=== PATIENT | male | born 1975 | race Caucasian/White ===

== ENCOUNTER → 2024-09-21 | Outpatient (CLI) | payer OTHER, SELFPAY ==
[2024-09-21 11:01] LABS: Hematocrit 44.3 % (40-54); Hemoglobin 15.1 g/dL (13.0-16.5); Immature Granulocytes Count 0.020 X10^3/uL (0.0-0.0); Mean Corp Hgb Conc 34.1 g/dL (32-36); Mean Corpuscular Volume 95.1 fL (80-94); Mean Platelet Vol. 11.3 fl (6.2-12.0); NRBC Flagged by Analyzer 0 % (0-5); Platelet Count 173 K/mm3 (150-450); RBC Distribution Width CV 12.1 % (11.6-14.6); RBC Distribution Width SD 42.2 fl (35.1-43.9); Red Blood Count 4.66 M/mm3 (4.6-6.2); White Blood Count 4.5 K/mm3 (4.4-11.0)
[2024-09-21 13:29] LABS: AST(SGOT) 31 U/L (<=37); Alanine Aminotransfer ALT/SGPT 57 U/L (<=46); Albumin, Serum 4.5 g/dL (3.5-5.0); Alkaline Phosphatase 35 U/L (40-129); Anion Gap 11 (5-15); BUN 14 mg/dL (4-19); BUN/Creat Ratio 13.7 RATIO (10-20); Calcium,Total 9.4 mg/dL (7.6-11.0); Carbon Dioxide 23.9 mmol/L (21.0-32.0); Chloride 104 mmol/L (98-108); Cholesterol 209 mg/dL (<=200); Globulin 2.8 g/dL (2.2-4.2); Glucose 98 mg/dL (70-99); Low Density Lipoprotein Calc. 127 mg/dL; Potassium 4.2 mmol/L (3.3-5.1); Triglycerides 175 mg/dL; Very Low Density Lipoprotein 35 mg/dL (5-40); cholesterol:hdl ratio screen 4.40
[2024-09-21 13:32] LABS: PSA,Total - Annual Screen 0.60 ng/mL (0.02-4.00)
--- OUTSIDE RECORDS SUMMARY | 2024-09-21 20:27 | XMS RPT_ITS | CCD ---
Author Organization [facility] Care Team Providers Care Hand Crown Pouncer Name Role Phone KEVEN MARTINES-LARISA, DANIEL Nieto Primary Care Physi shaniqua KEVEN MARTINES-DANIEL PERES Primary Care Un available SANA BRUCE Attending UnavailJuan JAMES, Avtar Root Attending Unavailable Danny JAMES, Avtar Root Attending Unavailable Medications Current Medications Medication Drug Class(es) Dates Sig (Normalized) Sig (Original) sertraline 100 mg oral tablet (1 source) Serotonin Reuptake Inhibitor Start: 02-12-2022 End: 02-07-2023 Zoloft 100 mg oral tablet Dose : 50 mg = 0.5 tab(s), Oral, Daily, # 45 tab(s), 3 Refill(s), Pharmacy: [facility], [facility] adult exam Depressive disorder, 170.2, cm, 02/12/22 9:11:00 EST, Height Start Date: 02/12/22 Stop Date: 02/07/23 Status: Ordered Problems Problem Classification Problem Date Documented Da te Episodic/Chronic Mood disorders (1 source) Depressive disorder 02-12-2022 Chronic Results Test Name Value Interpretation Reference Range Facility Urgent Care Visit Reporton 0 09-28-2023 Urgent Care Visit Report [facility] [address], [address] [place] [address] OFFICE VISIT Date of Service: 09/28/23 MR#: [id number] Acct: [id number] Name: NELIA LACKEY Abhijit Root Rep #: [id number] : 1975 Provider: JACOB Sylvester Age/Sex: 48/M Location: [facility] [place] Status: Signed Intake Vital Signs 03/09/23 14:09 09/28/23 11:00 Height 5 ft 8 in 5 ft 8 in Weight: 185 lb 185 lb BMI 28.1 28.1 BP 137/85 H 126/86 H Blood Pressure Location Lt brachial Lt brachial Position Sitting Sitting Respiration 16 16 Pulse 106 H 79 Pulse Source Monitor Monitor Temp 98.4 F 98.2 F Temp Source Temporal Temporal Pulse Oximetry (%) 94 98 Oxygen Delivery Method room air room air Intake Visit Reasons: SINUS COMPLAINT/CONGESTIO N/COUGH Chief Complaint: sinus com pliants congestion cough Percolator Operator Required: No Accompanied by: Self Is patient in pain?: No Allergies No Known Allergies Allergy (Unverified 09/28/23 11:01) Medications ???Medication ???Instructions ???Recorded ???Confirmed ???Type benzonatate 200 mg capsule 200 mg PO TID PRN cough #20 caps 09/28/23 09/28/23 Rx methylprednisolone 4 mg tablets in See Rx Instructions PO PER PKG DIR 09/28/23 09/28/23 Rx a dose pack (Medrol (Eliceo)) #21 tabs PFSH Medical History Acute pharyngitis, unspecified COVID-19 HPI HPI Chief Complaint: sinus com pliants congestion cough Details: NELIA LACKEY, is a 48 M who presents to the office today for initial evaluation in the [facility] for approximately 3 day history of persistent chills, cough, congestion. Patient notes no complaints of chest pain or shortness of breath or dyspnea on exertion. Several close contacts, including spouse, recently dx???d w/ similar URI complaints. Nonsmoker. Declining all POC screening upon offering. No [id number] taken to assist. No other associated symptoms and no other alleviating/aggrava ting factors. ROS Const Constitutional: No other (As above) Exam Const General: cooperative, healthy appearing and no acute distress Orientation: alert, awake and oriented x3 HENMT Head: normal to inspection Ears: hearing grossly normal bilaterally, external ears normal, TM's normal bilaterally and EAC's normal Nose: external nose normal, nares normal, septum normal and clear nasal discharge Face and sinus: normal facial exam, sinuses nontender and face symmetric Mouth: oral mucosae normal, lip normal, tongue normal and oropharynx normal Throat: posterior oropharynx normal, tonsils normal, uvula midline and no postnasal drainage Eyes General: appearance normal, both eyes and all related structures Neck Neck: normal visual inspection, full ROM, no lymphadenopathy, no meningeal signs and supple Neck mass: No Thyroid: thyroid normal Lymphatic: no lymphadenopathy noted Chest Chest palpation inspection: normal inspection of the chest Resp Effort Inspection: normal respiratory effort, able to speak in complete sentences and cough Quality of cough: dry (nonproductive in office today) Auscultation: Bilateral: Clear to Auscultation Cardio Palpation: normal PMI Rate: tachycardic Rhythm: regular rhythm Heart Sounds: S1 normal, S2 normal, no gallops, no murmurs and no rubs Pulses: radial pulses present Skin General: no rashes or lesions noted Neuro General: patient alert, patient awake and patient oriented x3 Cognition: normal cognition Speech: speech normal Psych Appearance: grossly normal Mental Status: mental status grossly normal Mood: congruent mood Affect: normal affect Speech and Movement: speech and movement normal Attitude: cooperative Diagnoses URI (upper respiratory infection) J06.9 Assessment and Plan Assessment and Plan (1) URI (upper respiratory infection): Status: Acute Plan: Declining all POC screening upon offering. Medrol and Benzonatate as prescribed today. Supportive measures as instructed today. Follow-up with PCP in 5 to 7 days should symptoms not improve, ED sooner should symptoms worsen or any other concerns develop. Pt states acknowledging understanding all the above Coding Level of Care Code Off vis,est,level 3 Assessment and Plan Assessment and Plan Medications: New methylprednisolone (Medrol (Eliceo)) PO PER PKG DIR 21 tabs 0RF benzonatate 200 mg PO TID PRN 20 caps 0RF cough 09/28/23 1109 Date Avtar JAMES Cosigner Signature: Date (if applicable) CC: Normal [facility] Urgent Care Visit Reporton 1 05-10-2022 Urgent Care Visit Report [facility] [address] , [address] [place] [address] OFFICE VISIT Date of Service: 03/09/23 MR#: [id number] Acct: [id number] Name: NELIA LACKEY Rep #: [id number] : 1975 Provider: JACOB Sylvester Age/Sex: 47/M Location: [facility] [place] Status: Signed Intake Vital Signs 03/20/21 15:56 03/09/23 14:09 Height 5 ft 8 in 5 ft 8 in Weight: 185 lb BMI 28.1 BP 137/85 H Blood Pressure Location Lt brachial Position Sitting Respiration 16 Pulse 106 H Pulse Source Monitor Temp 98.4 F Temp Source Temporal Pulse Oximetry (%) 94 Oxygen Delivery Method room air Intake Visit Reasons: SORE THROAT/SINUS PRESSURE/CONGESTION Chief Complaint: SORE THROAT COUGH Percolator Operator Required: No Accompanied by: Self Is patient in pain?: No Allergies No Known Allergies Allergy (Unverified 03/09/23 14:10) [facility] Medical History (Updated 03/09/23 @ 14:35 by Avtar JAMES, PA) Acute pharyngitis, unspecified COVID-19 HPI HPI Chief Complaint: SORE THROAT COUGH Details: NELIA LACKEY, is a 47 M who presents to the office today for initial evaluation in our clinic for approximately 5-7 day history of persistent chills, cough, KEATING, myalgias, fatigue, congestion/ runny nose - requesting strep' screening/ declining COVID-19 screening. Patient notes no complaints of chest pain or shortness of breath or dyspnea on exertion. Nonsmoker. Several close contacts recently dx???d w/ similar URI complaints. No ttlf-[id number] taken to assist. No other associated symptoms and no other alleviating/aggrava ting factors. ROS Const Constitutional: No other (As above) Exam Const General: cooperative, healthy appearing and no acute distress Orientation: alert, awake and oriented x3 HENMT Head: normal to inspection Ears: hearing grossly normal bilaterally, external ears normal, TM's normal bilaterally and EAC's normal Nose: external nose normal, nares normal, septum normal and clear nasal discharge Face and sinus: normal facial exam, sinuses nontender and face symmetric Mouth: oral mucosae normal, lip normal, tongue normal and oropharynx normal Throat: posterior oropharynx normal, tonsils erythema, uvula midline and no postnasal drainage Eyes General: appearance normal, both eyes and all related structures Neck Neck: normal visual inspection, full ROM, no lymphadenopathy, no meningeal signs and supple Neck mass: No Thyroid: thyroid normal Lymphatic: no lymphadenopathy noted Chest Chest palpation inspection: normal inspection of the chest Resp Effort Inspection: normal respiratory effort, able to speak in complete sentences and cough Quality of cough: wet (nonproductive in office today) Auscultation: Bilateral: Clear to Auscultation Cardio Palpation: normal PMI Rate: tachycardic Rhythm: regular rhythm Heart Sounds: S1 normal, S2 normal, no gallops, no murmurs and no rubs Pulses: radial pulses present Skin General: no rashes or lesions noted Neuro General: patient alert, patient awake and patient oriented x3 Cognition: normal cognition Speech: speech normal Psych Appearance: grossly normal Mental Status: mental status grossly normal Mood: congruent mood Affect: normal affect Speech and Movement: speech and movement normal Attitude: cooperative Diagnoses Acute pharyngitis, unspecified J02.9 URI (upper respiratory infection) J06.9 Assessment and Plan Assessment and Plan (1) Acute pharyngitis, unspecified: Status: Acute (2) URI (upper respiratory infection): Status: Acute Plan: See POC results. Medrol as prescribed today. Supportive measures as instructed today. Follow-up with PCP in 5 to 7 days should symptoms not improve, ED sooner should symptoms worsen or any other concerns develop. Pt states acknowledging understanding all the above. Coding Level of Care Code Off vis,est,level 3 Assessment and Plan Assessment and Plan Orders: Orders POC Mansi Rapid Strep A Today 03/09/23 1436 Date Avtar Quiros Signature: Date (if applicable) CC: Normal [facility] .GFRon 02-26-2023 GFR 82 ml/min/1.73sqm Normal [facility] ([place]) Comment on above: Result Comment: GFR Population mean for , Non- Americans Ages 20-29 = 116 mL/min/1.73 sq.m. Ages 30-39 = 107 mL/min/1.73 sq.m. Ages 40-49 = 99 mL/min/1.73 sq.m. Ages 50-59 = 93 mL/min/1.73 sq.m. Ages 60-69 = 85 mL/min/1.73 sq.m. Ages 70+ = 75 mL/min/1.73 sq.m. Chronic Kidney Disease: Less than 60 mL/min/1.73 square meters End Stage Renal Disease: Less than 15 mL/min/1.73 square meters Performed By: #### C MP, GFR #### [address] [address] GFR Non- 68 ml/min/1.73sqm Normal [facility] ([place]) Comment on above: Result Comment: GFR Population mean for , Non- Americans Ages 20-29 = 116 mL/min/1.73 sq.m. Ages 30-39 = 107 mL/min/1.73 sq.m. Ages 40-49 = 99 mL/min/1.73 sq.m. Ages 50-59 = 93 mL/min/1.73 sq.m. Ages 60-69 = 85 mL/min/1.73 sq.m. Ages 70+ = 75 mL/min/1.73 sq.m. Chronic Kidney Disease: Less than 60 mL/min/1.73 square meters End Stage Renal Disease: Less than 15 mL/min/1.73 square meters Performed By: #### C MP, GFR #### [address] [address] [facility] Albumin Level 4.6 G/dL Normal 3.5-5.0 [facility] ([place]) Comment on above: Performed By: #### C MP, GFR #### [id number] [place], [place] [address] Albumin/Globulin [Mass ratio] 1.4 {ratio} Normal 1.1-2.5 [facility] ([place]) Comment on above: Performed By: #### C MP, GFR #### [address] [address] ALP [Catalytic activity/Vol] 44 U/L Normal 40-135 [facility] ([place]) Comment on above: Performed By: #### C MP, GFR #### [address] [address] ALT [Catalytic activity/Vol] 83 U/L High 16-63 [facility] ([place]) Comment on above: Performed By: #### C MP, GFR #### [address] [address] AST [Catalytic activity/Vol] 34 U/L Normal 10-40 [facility] ([place]) Comment on above: Performed By: #### C MP, GFR #### [address] [address] Bili Total 0.6 mg/dL Normal 0.2-1.0 [facility] ([place]) Comment on above: Result Comment: Use of this assay is not recommended for patients undergoing treatment with eltrombopag due to the potential for falsely elevated results. Performed By: #### C MP, GFR #### [address] [address] BUN/Creatinine Ratio 14 ratio Normal 7-27 [facility] ([place]) Comment on above: Performed By: #### C MP, GFR #### [address] [address] Calcium [Mass/Vol] 9.7 mg/dL Normal 8.4-10.2 [facility] ([place]) Comment on above: Performed By: #### C MP, GFR #### [address] [address] Chloride [Moles/Vol] 102 mmol/L Normal 98-107 [facility] ([place]) Comment on above: Performed By: #### C MP, GFR #### [address] [address] CO2 [Moles/Vol] 25 mmol/L Normal 22-29 [facility] ([place]) Comment on above: Performed By: #### C MP, GFR #### [address] [address] Creatinine [Mass/Vol] 1.15 mg/dL Normal 0.70-1.30 [facility] ([place]) Comment on above: Performed By: #### C MP, GFR #### [address] [address] Electrolyte Balance 12.0 mEq/L Normal 4.0-15.0 [facility] ([place]) Comment on above: Performed By: #### C MP, GFR #### [address] [address] Globulin 3.3 G/dL Normal [facility] ([place]) Comment on above: Performed By: #### C MP, GFR #### [address] [address] Glucose [Mass/Vol] 100 mg/dL Normal 70-105 [facility] ([place]) Comment on above: Performed By: #### C MP, GFR #### [address] [address] Potassium [Moles/Vol] 4.6 mmol/L Normal 3.5-5.1 [facility] ([place]) Comment on above: Performed By: #### C MP, GFR #### [address] [address] Sodium [Moles/Vol] 139 mmol/L Normal 136-145 [facility] ([place]) Comment on above: Performed By: #### C MP, GFR #### [address] [address] Total Protein 7.9 G/dL Normal 6.4-8.2 [facility] ([place]) Comment on above: Performed By: #### C MP, GFR #### [address] [address] Urea nitrogen [Mass/Vol] 16 mg/dL Normal 7-18 [facility] ([place]) Comment on above: Performed By: #### C MP, GFR #### [address] [address] .Auto Diffon 02-25-2023 Basophil, Absolute 0.0 10 3/mcL Normal 0.0-0.2 [facility] ([place]) Comment on above: Performed By: #### C BC, ADIFF, ANEU, LIPID #### [address] [address] Basophils/100 WBC (Bld) 0.8 % Normal 0.0-2.5 [facility] ([place]) Comment on above: Performed By: #### C BC, ADIFF, ANEU, LIPID #### [address] [address] Eosinophil, Absolute 0.1 10 3/mcL Normal 0.0-0.4 [facility] ([place]) Comment on above: Performed By: #### C BC, ADIFF, ANEU, LIPID #### [address] [address] Eosinophils/100 WBC (Bld) 1.6 % Normal 0.0-7.0 [facility] ([place]) Comment on above: Performed By: #### C BC, ADIFF, ANEU, LIPID #### [address] [address] Lymphocyte, Absolute 1.6 10 3/mcL Normal 0.8-3.9 [facility] ([place]) Comment on above: Performed By: #### C BC, ADIFF, ANEU, LIPID #### [address] [address] Lymphocytes/100 WBC (Bld) 29.0 % Normal 10.0-50.0 [facility] ([place]) Comment on above: Performed By: #### C BC, ADIFF, ANEU, LIPID #### [address] [address] Monocyte, Absolute 0.5 10 3/mcL Normal 0.2-1.0 [facility] ([place]) Comment on above: Performed By: #### C BC, ADIFF, ANEU, LIPID #### [address] [address] Monocytes/100 WBC (Bld) 9.1 % Normal 1.7-13.0 [facility] ([place]) Comment on above: Performed By: #### C BC ADAUGUSTA, ANEU, LIPID #### [address] [address] Neutrophils/100 WBC (Bld) 59.5 % Normal 37.0-80.0 [facility] ([place]) Comment on above: Performed By: #### C BCTAMMY, ANEU, LIPID #### [address] [address] .NEUABSon 02-25-2023 Neutrophil, Absolute 3.2 10 3/mcL Normal 2.9-6.2 [facility] ([place]) Comment on above: Performed By: #### C TAMMY DOBBS ANEU, LIPID #### [place] [address] CBCon 02-25-2023 Erythrocyte distribution width (RBC) [Ratio] 12.9 % Normal 11.5-14.5 [facility] ([place]) Comment on above: Performed By: #### C TAMMY DOBBS ANEU, LIPID #### [address] [address] Hematocrit (Bld) [Volume fraction] 45.3 % Normal 42.0-52.0 [facility] ([place]) Comment on above: Performed By: #### C BCTAMMY ANEU, LIPID #### [address] [address] Hgb 15.7 G/dL Normal 14.0-18.0 [facility] ([place]) Comment on above: Performed By: #### C TAMMY DOBBS ANEU, LIPID #### [address] [address] MCH (RBC) [Entitic mass] 31.9 pg High 27.0-31.2 [facility] ([place]) Comment on above: Performed By: #### C BC, ADIFF, ANEU, LIPID #### [address] [address] MCHC 34.6 G/dL Normal 31.8-35.4 [facility] ([place]) Comment on above: Performed By: #### C BC, ADIFF, ANEU, LIPID #### [address] [address] MCV (RBC) [Entitic vol] 92.0 fL Normal 80.0-94.0 [facility] ([place]) Comment on above: Performed By: #### C BC, ADIFF, ANEU, LIPID #### [address] [address] Platelet 197 10 3/mcL Normal 130-400 [facility] ([place]) Comment on above: Performed By: #### C BC, ADIFF, ANEU, LIPID #### [address] [address] Platelet mean volume (Bld) [Entitic vol] 9.2 fL Normal 7.4-10.4 [facility] ([place]) Comment on above: Performed By: #### C BC, ADAUGUSTA, ANEU, LIPID #### [address] [address] RBC 4.92 10 6/mcL Normal 4.04-6.13 [facility] ([place]) Comment on above: Performed By: #### C BC, ADIFF, ANEU, LIPID #### [address] [address] WBC 5.4 10 3/mcL Normal 4.6-10.8 [facility] ([place]) Comment on above: Performed By: #### C BC, ADIFF, ANEU, LIPID #### [address] [address] LIPIDon 02-25-2023 Cholesterol [Mass/Vol] 240 mg/dL High 0-200 [facility] ([place]) Comment on above: Result Comment: Chol esterol Reference Interval: Less than 200 Desirable 200-239 Borderline high risk 240 and above High risk Performed By: #### C BC, ADIFF, ANEU, LIPID #### [address] [place], [place] [address] Cholesterol in HDL [Mass/Vol] 54 mg/dL Normal 40-60 [facility] ([place]) Comment on above: Performed By: #### C TAMMY DOBBS ANEU, LIPID #### [address] [place], [place] [address] Cholesterol in LDL [Mass/Vol] 151 mg/dL High 0-130 [facility] ([place]) Comment on above: Performed By: #### C DILIA, JOANA MUNOZ, LIPID #### [address] [place], [place] [address] Triglyceride [Mass/Vol] 174 mg/dL High 0-150 [facility] ([place]) Comment on above: Result Comment: Trig lyceride Reference Interval: Less than 150 Normal 150-199 Borderline high risk 200-499 High risk 500 or higher Very high risk Performed By: #### C TAMMY DOBBS ANEU, LIPID #### [address] [place], [place] [address] LABORATORYOrdered By: Que Ward on 02-12-2022 Albumin BCP dye [Mass/Vol] 4.2 G/dL Invalid Interpretation Code 3.5 - 5.0 G/dL AO ADM SS Albumin/Globulin [Mass ratio] 1.4 {ratio} Invalid Interpretation Code 1.1 - 2.5 ratio AO ADM SS ALP [Catalytic activity/Vol] 37 U/L Invalid Interpretation Code 40 - 135 U/L AO ADM SS ALT With P-5'-P [Catalytic activity/Vol] 51 U/L Invalid Interpretation Code 16 - 63 U/L AO ADM SS AST With P-5'-P [Catalytic activity/Vol] 25 U/L Invalid Interpretation Code 10 - 40 U/L AO ADM SS Bilirubin [Mass/Vol] 0.4 mg/dL Invalid Interpretation Code 0.2 - 1.0 mg/dL AO ADM SS Calcium [Mass/Vol] 8.9 mg/dL Invalid Interpretation Code 8.4 - 10.2 mg/dL AO ADM SS Chloride [Moles/Vol] 105 mmol/L Invalid Interpretation Code 98 - 107 mmol/L AO ADM SS Cholesterol [Mass/Vol] 224 mg/dL Invalid Interpretation Code 0 - 200 mg/dL AO ADM SS Cholesterol in HDL [Mass/Vol] 59 mg/dL Invalid Interpretation Code 40 - 60 mg/dL AO ADM SS Cholesterol in LDL [Mass/Vol] 135 mg/dL Invalid Interpretation Code 0 - 130 mg/dL AO ADM SS CO2 [Moles/Vol] 30 mmol/L Invalid Interpretation Code 22 - 29 mmol/L AO ADM SS Creatinine [Mass/Vol] 1.05 mg/dL Invalid Interpretation Code 0.70 - 1.30 mg/dL AO ADM SS Electrolyte Balance 9.0 mEq/L Invalid Interpretation Code 4.0 - 15.0 mEq/L AO ADM SS Globulin 3.1 G/dL Invalid Interpretation Code AO ADM SS Glucose [Mass/Vol] 90 mg/dL Invalid Interpretation Code 70 - 105 mg/dL AO ADM SS Potassium [Moles/Vol] 4.7 mmol/L Invalid Interpretation Code 3.5 - 5.1 mmol/L AO ADM SS Protein [Mass/Vol] 7.3 G/dL Invalid Interpretation Code 6.4 - 8.2 G/dL AO ADM SS Sodium [Moles/Vol] 144 mmol/L Invalid Interpretation Code 136 - 145 mmol/L AO ADM SS Triglyceride [Mass/Vol] 149 mg/dL Invalid Interpretation Code 0 - 150 mg/dL AO ADM SS Urea nitrogen [Mass/Vol] 12 mg/dL Invalid Interpretation Code 7 - 18 mg/dL AO ADM SS Urea nitrogen/Creatinine [Mass ratio] 11 ratio Invalid Interpretation Code 7 - 27 ratio AO ADM SS LABORATORYOrdered By: Becka Rossi on 02-12-2022 Basophil, Absolute 0.0 103/mcL Invalid Interpretation Code 0.0 - 0.2 10^3/mcL AO Workflow SS Basophils/100 WBC (Bld) 0.9 % Invalid Interpretation Code 0.0 - 2.5 % AO Workflow SS Eosinophil, Absolute 0.1 103/mcL Invalid Interpretation Code 0.0 - 0.4 10^3/mcL AO Workflow SS Eosinophils/100 WBC (Bld) 2.6 % Invalid Interpretation Code 0.0 - 7.0 % AO Workflow SS Erythrocyte distribution width (RBC) [Ratio] 12.9 % Invalid Interpretation Code 11.5 - 14.5 % AO Workflow SS Hematocrit (Bld) [Volume fraction] 44.2 % Invalid Interpretation Code 42.0 - 52.0 % AO Workflow SS Hemoglobin (Bld) [Mass/Vol] 15.3 G/dL Invalid Interpretation Code 14.0 - 18.0 G/dL AO Workflow SS Lymphocyte, Absolute 1.4 103/mcL Invalid Interpretation Code 0.8 - 3.9 10^3/mcL AO Workflow SS Lymphocytes/100 WBC (Bld) 33.8 % Invalid Interpretation Code 10.0 - 50.0 % AO Workflow SS MCH (RBC) [Entitic mass] 31.7 pg Invalid Interpretation Code 27.0 - 31.2 pg AO Workflow SS MCHC 34.7 G/dL Invalid Interpretation Code 31.8 - 35.4 G/dL AO Workflow SS MCV (RBC) [Entitic vol] 91.5 fL Invalid Interpretation Code 80.0 - 94.0 fL AO Workflow SS Monocyte, Absolute 0.4 103/mcL Invalid Interpretation Code 0.2 - 1.0 10^3/mcL AO Workflow SS Monocytes/100 WBC (Bld) 10.4 % Invalid Interpretation Code 1.7 - 13.0 % AO Workflow SS Neutrophil, Absolute 2.2 103/mcL Invalid Interpretation Code 2.9 - 6.2 10^3/mcL AO Workflow SS Neutrophils/100 WBC (Bld) 52.3 % Invalid Interpretation Code 37.0 - 80.0 % AO Workflow SS Platelet mean volume (Bld) [Entitic vol] 8.6 fL Invalid Interpretation Code 7.4 - 10.4 fL AO Workflow SS Platelets (Bld) [#/Vol] 180 103/mcL Invalid Interpretation Code 130 - 400 10^3/mcL AO Workflow SS RBC (Bld) [#/Vol] 4.83 106/mcL Invalid Interpretation Code 4.04 - 6.13 10^6/mcL AO Workflow SS WBC (Bld) [#/Vol] 4.1 103/mcL Invalid Interpretation Code 4.6 - 10.8 10^3/mcL AO Workflow SS LABORATORYOrdered By: SYSTEM SYSTEM on 02-12-2022 GFR 91 ml/min/1.73sqm Invalid Interpretation Code AO Chemistry S GFR Non- 75 ml/min/1.73sqm Invalid Interpretation Code AO Chemistry S Encounters Encounter Date Encounter Type Care Provider Facility Start: 09-28-2023 End: 09-28-2023 ambulatory Avtar JAMES Facility:[facility] Start: 03-09-2023 End: 03-09-2023 ambulatory Avtar JAMES Facility:[facility] Start: 02-25-2023 End: 02-26-2023 ambulatory DANIEL RAMIREZ Facility:[facility] Start: 02-12-2022 End: 02-12-2022 Patient encounter procedure DANIEL RAMIREZ [facility] Start: 02-12-2022 End: 02-12-2022 Well adult monitoring check done DANIEL RAMIREZ [facility] Procedures Date Procedure Procedure Detail Performing Clinician Entire thumb (body structure) DANIEL BACA APRN-TELEVISION [employer] Comment on above: repair of thumb defo rmity at Immunizations Immunization Date Immunization Notes Care Provider Fa cili 02-12-2022 influenza, injectabl e, quadrivalent, contains preservative; Translations: [Fluarix PF Quadrivalent ] DANIEL BACA APRN-TELEVISION [facility] 02-23-2021 SARS-CoV-2 (COVID-19 ) mRNA-1273 vaccine DANIEL BACA APRN-TELEVISION [employer] [facility] 07-17-2020 SARS-CoV-2 (COVID-19 ) mRNA-1273 vaccine DANIEL BACA APRN-TELEVISION [employer] [facility] Comment on above: Result Comment: 2021: [id number] 06-19-2020 SARS-CoV-2 (COVID-19 ) mRNA-1273 vaccine DANIEL BACA APRN-TELEVISION [employer] [facility] Comment on above: Result Comment: 2021: [id number] 12-05-2019 influenza virus vacc ine, unspecified formulation DANIEL BACA APRN-TELEVISION [employer] [facility] 01-12-2016 influenza virus vacc ine, unspecified formulation DANIEL ABCA [employer] IN[employer]CTOR-TELEVISION [employer] [facility] 02-15-2014 influenza virus vacc ine, unspecified formulation DANIEL BACA [employer]CTOR[employer] [facility] 02-15-2014 pneumococcal polysaccharide vaccine, 23 valent DANIEL BACA [employer] [facility] Payers Date Payer Category Payer Self-pay 2023 Unknown [id number] 1975 Unknown [id number] Unknown [id number] Unknown [id number] Social History Date Type Detail Facility Start: 08-19-2019 Tobacco smoking status Never s moked tobacco (finding) [facility] Sex Assigned At Male [facility] Evaluation + Plan note Note Date & Type Note Facility Evaluation + Plan note Future Appointments Appointment Date:02/11/2023 09:00:00 AM Scheduled Provider:DANIEL BACA Location:[facility] ([place], [place]) Appointment Type:PC OV [facility] Hospital course Narrative Note Date & Type Note Facility Hospital course Narrative No data available for this section [facility] Hospital Discharge instructions Note Date & Type Note Facility Hospital Discharge instructions No data available for this section [facility] Progress note Note Date & Type Note Facility Progress note No data available for this section [facility] Summary Purpose Family History No Family History Records FoundNo Family History Records Found Advance Directives No Advanced Directives Records FoundNo Advanced Directives Records Found Additional Source Comments Care Team (unrecognized sect ion and content) Care Team Personnel Name: DANIEL BACA Position: P4 Advanced Practice Nurse Member Role: Primary Care Physician Address: Address: [address] [place] [address] [facility] [place] [address] Care Team Related Persons Name: DAVID LACKEY Address: Home [address] [place] [phone] Name: SHAGGY LACKEY Name: SHAGGY LACKEY Name: SHAGGY LACKEY (unrecognized sect ion and content) No Status Records FoundNo Status Records Found INFORMATION SOURCE (unrecogn ized section and content) DATE CREATED AUTHOR 02/27/2023 [facility] ([place]) DATE CREATED AUTHOR AUTHOR'S ORGANIZ ATION 09/29/2023 [facility] FOR RECORDS PERTAINING TO PATIENTS WHO ARE OR HAVE BEEN ENROLLED IN A CHEMICAL DEPENDENCY/SUBSTANCEABUSE PROGRAM, SOME INFORMATION MAY BE OMITTED. This clinical summary was aggregated from multiple sources. Caution should be exercised in using it in the provision of clinical care. This summary normalizes information from multiple sources, and as a consequence, information in this document may materially change the coding, format and clinical context of patient data. In addition, data may be omitted in some cases. CLINICAL DECISIONS SHOULD BE BASED ON THE PRIMARY CLINICAL RECORDS. [facility]. provides no warranty or guarantee of the accuracy or completeness of information in this document.
== END | disposition home or self-care (01) ==
LOC: MTLAB 08:59
PROVIDERS: PCP Family Medicine; Referring Provider Family Medicine; Visit Provider Family Medicine
DX: I10 Essential (primary) hypertension (principal); Z12.5 Encounter for screening for malignant neoplasm of prostate
CPT/HCPCS: 36415; 80053; 80061; 84153; 85025; G0103